=== PATIENT | female | born 1990 | race American Indian/Alaskan Native ===

== ENCOUNTER 2017-06-18 08:07 | Emergency (ER) | payer MEDICAID, OTHER ==
[2017-06-18] MEDS ORDERED: MOTRIN PO ONE (08:42)
[2017-06-18] MEDS ORDERED: FLEXERIL PO ONE (08:42)
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
[2017-06-18 10:05] VITALS: BP 146/85
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
== END 2017-06-18 10:05 | disposition home or self-care (01) ==
LOC: ED 08:07
DX: M54.5 Low back pain (principal); F12.10 Cannabis abuse, uncomplicated; F17.200 Nicotine dependence, unspecified, uncomplicated; V89.2XXA Person injured in unspecified motor-vehicle accident, traffic, initial encounter; Y93.89 Activity, other specified; Y99.8 Other external cause status; Y92.488 Other paved roadways as the place of occurrence of the external cause
CPT/HCPCS: 72100; 81025; 99284

== ENCOUNTER 2017-08-15 09:38 | Emergency (ER) | payer OTHER ==
[2017-08-15 10:12] VITALS: BP 143/81
--- NOTE | 2017-08-15 14:30 | Emergency Department Report ---
HPI - General Chief Complaint: Abdominal Pain Time Seen by Provider: 08/15/17 14:26 - HPI HPI: This is a healthy 26-year-old female who's had 1 day of illness. She's had fever, body aches, headache vomiting and diarrhea. She has mild nonproductive cough. She works in a warehouse. No known sick contacts. Moderate symptoms. ED Past Medical Hx - Past Medical History Previous Medical History?: No Hx Hypertension: No Hx Congestive Heart Failure: No Hx Diabetes: No Hx Deep Vein Thrombosis: No Hx Renal Disease: No Hx Sickle Cell Disease: No Hx Seizures: No Hx Asthma: No Hx COPD: No Hx HIV: No - Surgical History Past Surgical History?: Yes Additional Surgical History: x 2. Tubal ligation - Social History Smoking Status: Current Every Day Smoker Substance Use Type: Alcohol, Marijuana - Medications Home Medications: Home Medications Medication Instructions Recorded Confirmed Last Taken Type Pnv,Calcium 72/Iron,Carb/Folic 1 tab PO DAILY 08/26/13 08/26/13 Unknown History [ Plus Iron Tablet] oxyCODONE /ACETAMINOPHEN [Percocet 1 tab PO Q4HR #30 tablet 08/26/13 Unknown Rx 5/325 mg] Cephalexin [Keflex] 500 mg PO Q12HR #14 cap 05/20/15 Unknown Rx hydrOXYzine HCL [Atarax] 25 mg PO Q6HR PRN #30 tablet 05/20/15 Unknown Rx methylPREDNISolone [Medrol Dose 4 mg PO QDAY #1 pack 05/20/15 Unknown Rx Francisco] Acetaminophen/Codeine [Tylenol #3] 1 tab PO Q6H PRN #15 tab 08/16/15 Unknown Rx Ibuprofen [Motrin] 800 mg PO Q8HR PRN #45 tablet 08/16/15 Unknown Rx Cyclobenzaprine [Flexeril] 10 mg PO TID PRN #15 tablet 06/18/17 Unknown Rx Ibuprofen [Motrin 800 MG tab] 800 mg PO TID PRN #30 tablet 06/18/17 Unknown Rx Ibuprofen 800 mg PO Q8H PRN #10 tablet 08/15/17 Unknown Rx Loperamide [Imodium] 4 mg PO QID 2 Days #16 capsule 08/15/17 Unknown Rx ED Review of Systems ROS: Stated complaint: FLU LIKE SYMPTOMS Other details as noted in HPI Comment: All other systems reviewed and negative Constitutional: chills, fever, malaise ENT: denies: ear pain, throat pain Respiratory: cough Physical Exam - Physical Exam Vital Signs: Vital Signs 08/15/17 10:08 Temperature 99.3 F Pulse Rate 103 H Respiratory 16 Rate Blood Pressure 143/81 O2 Sat by Pulse 96 Oximetry Physical Exam: General: Well-appearing, no acute distress HEENT: Normocephalic atraumatic pupils equal round and reactive to light anicteric sclera Nose: no rhinorrhea Oropharynx: Clear mucous membranes no lesions Neck: supple, no meningismus Chest: Clear to auscultation bilaterally no rales rhonchi no wheezes Cardiac: Regular rate and rhythm no murmurs no rubs no gallops Abdomen: Soft nontender nondistended positive bowel sounds no guarding Extremities: No cyanosis no clubbing no edema Neuro: Moves all extremities 4, no gross deficits Psychiatric: Alert and oriented 4 normal aspect normal judgment normal inside ED Course Vital Signs 08/15/17 10:08 Temperature 99.3 F Pulse Rate 103 H Respiratory 16 Rate Blood Pressure 143/81 O2 Sat by Pulse 96 Oximetry ED Medical Decision Making - Medical Decision Making 26-year-old female who presents with flulike illness with low-grade fever here in the ED. Diagnosis: Influenza Patient Requested Treatment for Diarrhea and KATE. rx: loperamide, Ibuprofen. Critical care attestation.: If time is entered above; I have spent that time in minutes in the direct care of this critically ill patient, excluding procedure time. ED Disposition Clinical Impression: Influenza Disposition: DC-01 TO HOME OR SELFCARE Is pt being admited?: No Does the pt Need Aspirin: No Condition: Stable Instructions: Influenza (ED) Prescriptions: Ibuprofen 800 mg PO Q8H PRN #10 tablet PRN Reason: Headache Loperamide [Imodium] 4 mg PO QID 2 Days #16 capsule Referrals: PRIMARY CARE, [Primary Care Provider] - as needed Forms: Work/School Release Form(ED)
== END 2017-08-15 14:43 | disposition home or self-care (01) ==
LOC: ED 09:38
DX: J11.1 Influenza due to unidentified influenza virus with other respiratory manifestations (principal); F17.200 Nicotine dependence, unspecified, uncomplicated; F12.10 Cannabis abuse, uncomplicated
CPT/HCPCS: 93005; 93010; 99282

== ENCOUNTER 2019-02-10 09:44 | Emergency (ER) | payer SELFPAY ==
[2019-02-10 10:09] VITALS: BP 164/93
--- NOTE | 2019-02-10 11:48 | Emergency Department Report ---
HPI - General Chief Complaint: Urogenital-Female Time Seen by Provider: 02/10/19 11:44 - HPI HPI: 28-year-old female presents to the emergency department for STD checks. The patient has a female partner who she says was recently diagnosed with trichomoniasis. The patient herself denies any vaginal discharge, pelvic pain or any rash or lesions. She is also requesting to be checked for gonorrhea and chlamydia. 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 ED Past Medical Hx - Past Medical History Hx Hypertension: No Hx Congestive Heart Failure: No Hx Diabetes: No Hx Deep Vein Thrombosis: No Hx Renal Disease: No Hx Sickle Cell Disease: No Hx Seizures: No Hx Asthma: No Hx COPD: No Hx HIV: No - Surgical History Past Surgical History?: Yes Additional Surgical History: x 2. Tubal ligation - Social History Smoking Status: Light Tobacco Smoker Substance Use Type: Alcohol, Marijuana - Medications Home Medications: Home Medications Medication Instructions Recorded Confirmed Last Taken Type Pnv,Calcium 72/Iron,Carb/Folic 1 tab PO DAILY 08/26/13 08/26/13 Unknown History [ Plus Iron Tablet] oxyCODONE /ACETAMINOPHEN [Percocet 1 tab PO Q4HR #30 tablet 08/26/13 Unknown Rx 5/325 mg] cephALEXin [Keflex] 500 mg PO Q12HR #14 cap 05/20/15 Unknown Rx hydrOXYzine HCL [Atarax] 25 mg PO Q6HR PRN #30 tablet 05/20/15 Unknown Rx methylPREDNISolone [Medrol Dose 4 mg PO QDAY #1 pack 05/20/15 Unknown Rx Francisco] Acetaminophen/Codeine [Tylenol #3] 1 tab PO Q6H PRN #15 tab 08/16/15 Unknown Rx Ibuprofen [Motrin] 800 mg PO Q8HR PRN #45 tablet 08/16/15 Unknown Rx Cyclobenzaprine [Flexeril] 10 mg PO TID PRN #15 tablet 06/18/17 Unknown Rx Ibuprofen [Motrin 800 MG tab] 800 mg PO TID PRN #30 tablet 06/18/17 Unknown Rx Ibuprofen 800 mg PO Q8H PRN #10 tablet 08/15/17 Unknown Rx Loperamide [Imodium] 4 mg PO QID 2 Days #16 capsule 08/15/17 Unknown Rx metroNIDAZOLE [Flagyl] 500 mg PO Q12HR #14 tab 07/30/19 Unknown Rx ED Review of Systems ROS: Stated complaint: STD CHECK Other details as noted in HPI Comment: All other systems reviewed and negative Gastrointestinal: abdominal pain. denies: vomiting Genitourinary: denies: dysuria, discharge Skin: denies: rash, lesions Physical Exam - Physical Exam Vital Signs: Vital Signs 02/10/19 10:06 Temperature 98.5 F Pulse Rate 85 Respiratory 16 Rate Blood Pressure 164/93 O2 Sat by Pulse 98 Oximetry Physical Exam: GENERAL: The patient is well-developed well-nourished. HENT: Normocephalic. Atraumatic. Patient has moist mucous membranes. EYES: Extraocular motions are intact. NECK: Supple. Trachea is midline. CHEST/LUNGS: Clear to auscultation. There is no respiratory distress noted. HEART/CARDIOVASCULAR: Regular. There is no tachycardia. There is no murmur. ABDOMEN: There is no abdominal distention. SKIN: Skin is warm and dry. NEURO: The patient is awake, alert, and oriented. The patient is cooperative. The patient has normal speech. MUSCULOSKELETAL: There is no tenderness or deformity. There is no evidence of acute injury. ED Course Vital Signs 02/10/19 10:06 Temperature 98.5 F Pulse Rate 85 Respiratory 16 Rate Blood Pressure 164/93 O2 Sat by Pulse 98 Oximetry ED Medical Decision Making - Medical Decision Making This patient presents with the complaint of exposure to trichomoniasis from her female sexual partner. The patient denies any vaginal bleeding, vaginal discharge, pelvic or abdominal pain, general lesions, or any other physical complaints at this time. She is requesting to be checked for multiple different types of STDs. The patient was seen by registration and she is self-pay and did not want to pay the $150 co-pay. She was medically screened and does not appear to have any emergent medical condition going on at this time. She was given multiple referrals for clinics in the area for outpatient follow-up. Since the patient does have known exposure to the trichomoniasis, she will be placed on the Flagyl, but will have to go to the health department or clinics for any further STD testing for the sake of testing. She will return to the emergency department with any further concerns or complaints or with any acute distress. Critical Care Time: No Critical care attestation.: If time is entered above; I have spent that time in minutes in the direct care of this critically ill patient, excluding procedure time. ED Disposition Clinical Impression: Exposure to trichomonas Disposition: DC-01 TO HOME OR SELFCARE Is pt being admited?: No Condition: Stable Instructions: Metronidazole (By mouth), Trichomoniasis (ED) Additional Instructions: Please avoid any further sexual contact until for at least one week after completing the medication. You are being prescribed Flagyl/metronidazole, to empirically treat the trichomoniasis. This medication has a severe reaction With alcohol of any quantity and therefore please avoid any alcohol use for up to 2 days after finishing the medication. Return to the emergency Department with any worsening of her symptoms or any acute distress. You will be given multiple outpatient referrals for clinics and the health department for further testing and evaluation. Prescriptions: metroNIDAZOLE [Flagyl] 500 mg PO Q12HR #14 tab Referrals: [facility] [Outside] - 2-3 Days [facility] [Outside] - 2-3 Days Forms: Work/School Release Form(ED) Time of Disposition: 11:48
== END 2019-02-10 11:58 | disposition home or self-care (01) ==
LOC: ED 09:44
DX: T75.89XA Other specified effects of external causes, initial encounter (principal); Z98.51 Tubal ligation status; Z79.899 Other long term (current) drug therapy; X58.XXXA Exposure to other specified factors, initial encounter
CPT/HCPCS: 99282

== ENCOUNTER 2019-08-10 09:01 | Emergency (ER) | payer SELFPAY ==
[2019-08-10] MEDS ORDERED: ONDANSETRON 4 MG/2 ML INJ IM ONE (11:36)
--- NOTE | 2019-08-10 11:39 | Emergency Department Report ---
ED Abdominal Pain HPI - General Chief Complaint: Nausea/Vomiting/Diarrhea Stated Complaint: STOMACH PAIN 2DAYS Time Seen by Provider: 08/10/19 11:32 Source: patient Mode of arrival: Ambulatory Limitations: No Limitations - History of Present Illness Initial Comments: Patient is 28 years old female with no significant past medical history. Patient presented to the ER complaining of diffuse abdominal pain, nausea, vomiting and watery diarrhea for the last 2 days. Patient stated that symptoms started after she ate a steak. Patient denied any fever or chills. MD Complaint: abdominal pain - Related Data Home Medications Medication Instructions Recorded Confirmed Last Taken Pnv,Calcium 72/Iron,Carb/Folic 1 tab PO DAILY 08/26/13 08/26/13 Unknown [ Plus Iron Tablet] Previous Rx's Medication Instructions Recorded Last Taken Type oxyCODONE /ACETAMINOPHEN [Percocet 1 tab PO Q4HR #30 tablet 08/26/13 Unknown Rx 5/325 mg] cephALEXin [Keflex] 500 mg PO Q12HR #14 cap 05/20/15 Unknown Rx hydrOXYzine HCL [Atarax] 25 mg PO Q6HR PRN #30 tablet 05/20/15 Unknown Rx methylPREDNISolone [Medrol Dose 4 mg PO QDAY #1 pack 05/20/15 Unknown Rx Francisco] Acetaminophen/Codeine [Tylenol #3] 1 tab PO Q6H PRN #15 tab 08/16/15 Unknown Rx Ibuprofen [Motrin] 800 mg PO Q8HR PRN #45 tablet 08/16/15 Unknown Rx Cyclobenzaprine [Flexeril] 10 mg PO TID PRN #15 tablet 06/18/17 Unknown Rx Ibuprofen [Motrin 800 MG tab] 800 mg PO TID PRN #30 tablet 06/18/17 Unknown Rx Ibuprofen 800 mg PO Q8H PRN #10 tablet 08/15/17 Unknown Rx Loperamide [Imodium] 4 mg PO QID 2 Days #16 capsule 08/15/17 Unknown Rx metroNIDAZOLE [Flagyl] 500 mg PO Q12HR #14 tab 02/10/19 Unknown Rx Naproxen [Naprosyn] 500 mg PO BID #14 tablet 04/04/19 Unknown Rx Allergies Allergy/AdvReac Type Severity Reaction Status Date / Time No Known Allergies Allergy Verified 08/16/15 09:27 ED Review of Systems ROS: Stated complaint: STOMACH PAIN 2DAYS Other details as noted in HPI Comment: All other systems reviewed and negative Constitutional: denies: chills, fever Respiratory: denies: cough, shortness of breath Cardiovascular: denies: chest pain, palpitations Gastrointestinal: abdominal pain, nausea, vomiting, diarrhea. denies: constipation, hematemesis, melena, hematochezia Musculoskeletal: denies: back pain Neurological: denies: headache, weakness, numbness, paresthesias, confusion ED Past Medical Hx - Past Medical History Previous Medical History?: No Hx Hypertension: No Hx Congestive Heart Failure: No Hx Diabetes: No Hx Deep Vein Thrombosis: No Hx Renal Disease: No Hx Sickle Cell Disease: No Hx Seizures: No Hx Asthma: No Hx COPD: No Hx HIV: No - Surgical History Past Surgical History?: Yes Additional Surgical History: x 2. Tubal ligation - Social History Smoking Status: Current Some Day Smoker Substance Use Type: Alcohol, Marijuana - Medications Home Medications: Home Medications Medication Instructions Recorded Confirmed Last Taken Type Pnv,Calcium 72/Iron,Carb/Folic 1 tab PO DAILY 08/26/13 08/26/13 Unknown History [ Plus Iron Tablet] oxyCODONE /ACETAMINOPHEN [Percocet 1 tab PO Q4HR #30 tablet 08/26/13 Unknown Rx 5/325 mg] cephALEXin [Keflex] 500 mg PO Q12HR #14 cap 05/20/15 Unknown Rx hydrOXYzine HCL [Atarax] 25 mg PO Q6HR PRN #30 tablet 05/20/15 Unknown Rx methylPREDNISolone [Medrol Dose 4 mg PO QDAY #1 pack 05/20/15 Unknown Rx Francisco] Acetaminophen/Codeine [Tylenol #3] 1 tab PO Q6H PRN #15 tab 08/16/15 Unknown Rx Ibuprofen [Motrin] 800 mg PO Q8HR PRN #45 tablet 08/16/15 Unknown Rx Cyclobenzaprine [Flexeril] 10 mg PO TID PRN #15 tablet 06/18/17 Unknown Rx Ibuprofen [Motrin 800 MG tab] 800 mg PO TID PRN #30 tablet 06/18/17 Unknown Rx Ibuprofen 800 mg PO Q8H PRN #10 tablet 08/15/17 Unknown Rx Loperamide [Imodium] 4 mg PO QID 2 Days #16 capsule 08/15/17 Unknown Rx metroNIDAZOLE [Flagyl] 500 mg PO Q12HR #14 tab 02/10/19 Unknown Rx Naproxen [Naprosyn] 500 mg PO BID #14 tablet 04/04/19 Unknown Rx ED Physical Exam - General Limitations: No Limitations General appearance: alert, in no apparent distress - Head Head exam: Present: atraumatic, normocephalic, normal inspection - Eye Eye exam: Present: normal appearance - ENT ENT exam: Present: normal exam, normal orophraynx, mucous membranes moist. Absent: mucous membranes dry - Neck Neck exam: Present: normal inspection, full ROM. Absent: tenderness, meningismus, lymphadenopathy, thyromegaly - Respiratory Respiratory exam: Present: normal lung sounds bilaterally - Cardiovascular Cardiovascular Exam: Present: regular rate, normal rhythm, normal heart sounds - GI/Abdominal GI/Abdominal exam: Present: soft, normal bowel sounds. Absent: distended, tenderness, guarding, rebound, rigid, organomegaly, mass, bruit, pulsatile mass, hernia - Extremities Exam Extremities exam: Present: normal inspection, full ROM, normal capillary refill. Absent: pedal edema, calf tenderness - Back Exam Back exam: Present: normal inspection, full ROM. Absent: CVA tenderness (R), CVA tenderness (L), muscle spasm, paraspinal tenderness, vertebral tenderness - Neurological Exam Neurological exam: Present: alert, oriented X3, CN II-XII intact, normal gait, reflexes normal. Absent: motor sensory deficit - Psychiatric Psychiatric exam: Present: normal mood - Skin Skin exam: Present: warm, intact, normal color ED Course Vital Signs 08/10/19 08/10/19 09:05 11:58 Temperature 98.4 F Pulse Rate 75 Respiratory 16 17 Rate Blood Pressure 131/75 O2 Sat by Pulse 97 Oximetry ED Medical Decision Making - Lab Data Result diagrams: 08/10/19 12:17 08/10/19 12:17 - Medical Decision Making Patient is 28 years old female with no significant past medical history. Patient presented to the ER complaining of diffuse abdominal pain, nausea, vomiting and watery diarrhea for the last 2 days. Patient stated that symptoms started after she ate a steak. Patient denied any fever or chills. Patient received Zofran. No vomiting observed. Patient stated that she is feeling much better. Patient labs reviewed and is unremarkable. No clinical or laboratory evidence of acute abdomen. Patient's symptoms is consistent with gastroenteritis however patient advised to follow up with her primary care physician in the next 2-3 days and advised to return to the ER if symptoms are not improved. Critical care attestation.: If time is entered above; I have spent that time in minutes in the direct care of this critically ill patient, excluding procedure time. ED Disposition Clinical Impression: Abdominal pain, Nausea vomiting and diarrhea Disposition: TO HOME OR SELFCARE Is pt being admited?: No Condition: Stable Instructions: Acute Nausea and Vomiting (ED), Abdominal Pain (ED) Referrals: PRIMARY CARE, [Primary Care Provider] - 3-5 Days
[2019-08-10] MEDS ORDERED: ONDANSETRON 4 MG ODT TAB PO ONE (12:06)
[2019-08-10 12:35] LABS: Bilirubin,Urine NEG (Negative); Blood,Urine NEG (Negative); Color,Urine Yellow (Yellow); Mucus,Urine 1+ /HPF; Protein,Urine <15 mg/dL mg/dL (Negative)
[2019-08-10 12:58] LABS: Basophils % (Auto) 0.6 % (0.0-1.8); Eosinophils % (Auto) 0.3 % (0.0-4.3); Hematocrit 40.2 % (30.3-42.9); Hemoglobin 13.2 gm/dl (10.1-14.3); Lymphocytes # (Auto) 1.5 K/mm3 (1.2-5.4); Mean Corpuscular HGB Conc 33 % (30-34); Mean Corpuscular Volume 92 fl (79-97); Monocytes # (Auto) 0.6 K/mm3 (0.0-0.8); Platelet Count 303 K/mm3 (140-440); Red Blood Count 4.37 M/mm3 (3.65-5.03); Red Cell Distribution Width 12.8 % (13.2-15.2)
[2019-08-10 13:19] LABS: BUN/Creatinine Ratio 10; Blood Urea Nitrogen 8 mg/dL (7-17); Calcium 9.1 mg/dL (8.4-10.2); Hemolysis Index 15
[2019-08-10 13:45] VITALS: BP 120/79
== END 2019-08-10 13:43 | disposition home or self-care (01) ==
LOC: ED 09:01
DX: R10.9 Unspecified abdominal pain (principal); R11.2 Nausea with vomiting, unspecified; R19.7 Diarrhea, unspecified; F17.200 Nicotine dependence, unspecified, uncomplicated; F12.10 Cannabis abuse, uncomplicated; Z98.51 Tubal ligation status; Z79.899 Other long term (current) drug therapy
CPT/HCPCS: 36415; 80048; 81001; 84703; 85025; Q0162